=== PATIENT | female | born 1970 | race African-American/Black ===

== ENCOUNTER 2019-03-19 13:47 | Emergency (ER) | payer OTHER ==
[~2019-03-19] VITALS: Ht 172.7 cm; Wt 79.4 kg
[2019-03-19] MEDS ORDERED: IBUP-51 PO (14:45)
[2019-03-19 14:54] LABS: APPEARANCE,URINE Clear (CLEAR); BILIRUBIN,URINE Negative (NEGATIVE); BLOOD, URINE Trace-intact Ery/uL (NEGATIVE); COLOR,URINE Yellow (YELLOW); KETONES,URINE Negative (NEGATIVE); LEUKOCYTE ESTERASE ,URINE Negative (NEGATIVE); NITRITE, URINE Negative (NEGATIVE); PH,URINE 8.5 (5.0-8.0); PROTEIN,URINE Negative (NEGATIVE); UGLUCOSE Negative (NEGATIVE); UROBILINOGEN,URINE 0.2 EU/dL (0.2)
[2019-03-19 15:07] LABS: BACTERIA,URINE Rare /HPF (None Seen); SQUAMOUS EPITHELIAL CELL,UR Moderate /HPF (None Seen)
[2019-03-19] MEDS ORDERED: IV NS 0.9% 1,000 ML BAG IV ONE ×2 (15:30→19:30)
[2019-03-19] MEDS ORDERED: ONDANSETRON HCL/PF - ER 4 MG/2 ML VIAL IV ONE (15:30)
[2019-03-19] MEDS ORDERED: LIDOCAINE VISCOUS 2% UD 15 ML UDC MM ONE (15:30)
[2019-03-19] MEDS ORDERED: MAG HYDROX/AL HYDROX/SIMETH 30 ML UDC PO ONE (15:30)
[2019-03-19] MEDS ORDERED: FAMOTIDINE/PF INJ 20 MG/2 ML VIAL IV ONE ×2 (15:30→15:47)
[2019-03-19] MEDS ORDERED: MAG HYDROX/AL HYDROX/SIMETH 30 ML UDC ONE (15:47)
[2019-03-19] MEDS ORDERED: ONDANSETRON HCL/PF 4 MG/2 ML VIAL ONE (15:47)
[2019-03-19] MEDS ORDERED: LIDOCAINE VISCOUS 2% UD 15 ML UDC ONE (15:47)
--- NOTE | 2019-03-19 15:58 | NUR ---
EPIGASTRIC PAIN, RADIATES EVERYWHERE IN THE ABDOMINAL AREA WITH NAUSEA, VOMITING, & DIARRHEA. PT AAOX4, VSS. RR EVEN & UNLABORED. DENIES CP, SOB, DIZZINESS, WEAKNESS @ THIS TIME. SEEN & EVAL'D BY DR. PAGE. MEDICATED ORDERED & WILL CONT TO MONITOR.
[2019-03-19 16:01] LABS: BASOPHILS % (AUTO) 0.3 % (0.0-2.0); EOSINOPHILS % (AUTO) 0.1 % (0.0-6.0); HEMATOCRIT 39 % (33-45); LYMPHOCYTES # (AUTO) 0.9 /CMM (0.8-4.8); LYMPHOCYTES % (AUTO) 14.6 % (20.0-44.0); MEAN CORPUSCULAR HGB CONC 34 g/dl (31.0-36.0); MEAN CORPUSCULAR VOLUME 87 fL (82-100); MONOCYTES # (AUTO) 0.4 /CMM (0.1-1.30); MONOCYTES % (AUTO) 6.3 % (2.0-12.0); NEUTROPHILS % (AUTO) 78.7 % (43.0-81.0); PLATELET COUNT (AUTO) 426 /CMM (150-450); RED BLOOD CELL COUNT(AUTO) 4.46 MIL/uL (4.0-5.2); WHITE BLOOD COUNT (AUTO) 6.3 K/uL (4.3-11.0)
[2019-03-19 16:16] LABS: BILIRUBIN,DIRECT 0.1 mg/dL (0.0-0.2); BILIRUBIN,TOTAL 0.2 mg/dL (0.2-1.0); CALCIUM, SERUM 9.6 mg/dL (8.5-10.1); CREATININE 0.6 mg/dL (0.6-1.3); POTASSIUM 4.1 mmol/L (3.5-5.1); TOTAL PROTEIN, SERUM 8.1 g/dL (6.4-8.2)
[2019-03-19] MEDS ORDERED: IV NS 0.9% 250 ML IV ONE (16:27)
[2019-03-19] MEDS ORDERED: CT SWABBABLE VALVE TRANS SET 1 EA INFUS.SET MC ONE (16:27)
[2019-03-19] MEDS ORDERED: IOHEXOL-300 100 ML VIAL IV ONE (16:27)
--- NOTE | 2019-03-19 16:29 | NUR ---
PT TO RADIOLOGY DEPT VIA [facility].
--- NOTE | 2019-03-19 17:55 | NUR ---
GAVE MOVESHEET TO ADMITTING FOR [facility]
[2019-03-19] MEDS ORDERED: MORPHINE SULFATE INJ 4 MG/ML DISP.SYRIN ONE (18:12)
[2019-03-19] MEDS ORDERED: MORPHINE SULFATE INJ 2 MG/ML DISP.SYRIN IV ONE (18:30)
[2019-03-19 19:10] VITALS: BP 120/75
--- NOTE | 2019-03-19 19:11 | NUR ---
PT RESTING. ABD PAIN 11/04 & ELDA. DENIES CP, SOB, DIZZINESS, N/V @ THIS TIME. AWAITING BED ASSIGNMENT.
--- NOTE | 2019-03-19 19:59 | NUR ---
PER ELIOT VERDIN PT WILL GO TO [facility] ACCEPTED BY DR MILLS, AWAITING BED ASSIGNMENT. WILL CALL BACK WITH UPDATE.
--- NOTE | 2019-03-19 21:34 | NUR ---
[facility] DIRECT ADMIT TO ROOM 446, RN FOR REPORT [phone], [facility] ETA 22:15
--- NOTE | 2019-03-19 21:50 | NUR ---
REPORT GIVEN TO ESTHER SALDAÑA FOR TOSIN AT [facility]
== END 2019-03-19 22:00 | disposition short-term general hospital (02) ==
LOC: ER 13:49
DX: K85.90 Acute pancreatitis without necrosis or infection, unspecified (principal); R11.2 Nausea with vomiting, unspecified; F17.200 Nicotine dependence, unspecified, uncomplicated
CPT/HCPCS: 36415; 74177; 76705; 80048; 80076; 81001; 83690; 84703; 85025; 87081; 96361; 96374; 96375; 99285; J2270; J2405; J3490; J7030 ×2; J7050; Q9967; 81000-TC